=== PATIENT | female | born 1960 | race Caucasian/White ===

== ENCOUNTER 2022-07-17 12:29 | Emergency (ER) | payer OTHER, SELFPAY ==
[2022-07-17 12:53] VITALS: BP 138/90; PULSE 105; RESP 18; TEMP 36.8; O2SAT 97
--- NOTE | 2022-07-17 13:23 | ED.GENADULT ---
HPI - General Adult General Chief complaint: Upper Respiratory Infection Stated complaint: sorethroat Time Seen by Provider: 07/17/22 13:23 Source: patient Mode of arrival: ambulatory Limitations: no limitations History of Present Illness HPI narrative: 52-year-old female patient presents to the [facility] with complaints of sore throat, watery eyes with redness, cough, body aches, chills and fatigue. Denies fevers she is aware of. Patient is an active smoker. Patient states she has not been vaccinated for COVID or influenza. Patient states her symptoms started approximately 3 days ago. Any abdominal pain, nausea vomiting or diarrhea. Denies any chest pain or shortness of breath. Related Data Home Medications Medication Instructions Recorded Confirmed levothyroxine 175 mcg tablet 175 mcg PO DAILY 07/17/22 07/17/22 Allergies Allergy/AdvReac Type Severity Reaction Status Date / Time No Known Allergies Allergy Verified 07/17/22 13:32 Review of Systems Review of Systems: CONSTITUTIONAL: Denies fever, Positive body aches and chills, , denies sweats. positive fatigue EYES: Denies visual changes, positive redness, with clear discharge. ENT: positive rhinorrhea, congestion, sore throat, denies otalgia. CARDIOVASCULAR: Denies chest pain, palpitations, or edema. RESPIRATORY: positive cough denies dyspnea. GASTROINTESTINAL: Denies abdominal pain, nausea, vomiting, or diarrhea. GENITOURINARY: Denies dysuria or hematuria. SKIN: Denies rash or itching. MUSCULOSKELETAL: Denies back pain, joint pain, or myalgia. NEUROLOGIC: Denies headache, numbness, or weakness. PSYCHIATRIC: Denies anxiety or depression. PMFSH Social History Social History (Updated 07/17/22 @ 13:32 by ANATOLIY Penaloza) Smoking status: Current every day smoker Comments At the time of my signature I agree with nursing past medical history, surgical, social, and family history. There is no relevant family history pertinent to the presenting complaint. Exam Narrative: GENERAL: Well-appearing, well-nourished, and in no acute distress. HEAD: Normocephalic, atraumatic. EYES: PERRLA and EOM intact without limitation or complaint of pain, no periorbital soft tissue swelling ,no erythema, warmth or tenderness noted, no obvious deformity. No crusting or swelling.no tearing or draining.No photophobia. No nystagmus No FB or lesion on lid eversion. Corneas grossly clear, no obvious FB or hyphens/hypopyon. erythematous injection to sclera. Lids and lashes clear. clear discharge present. ENT: Nares With erythema and edema noted of bilateral, no rhinorrhea or epistaxis. Mucous membranes moist. posterior pharynx with erythema, no tonsillar enlargement, no exudates or lesions present. Bilateral TMs are clear no erythema foreign bodies in the canal. NECK: Supple. Post auricle lymphadenopathy CHEST: Clear to auscultation. No respiratory distress. Patient able talk clear complete sentences. HEART: Regular rate and rhythm. No murmur heard. Normal peripheral pulses. ABDOMEN: Soft, nontender, nondistended, normal active bowel sounds. EXTREMITIES: Normal range of motion. No edema. SKIN: Warm, dry, no rash. NEURO: No focal deficits. Alert and oriented x3. Course Course Level of Care: Express Care Visit Reevaluation(s) Reevaluation #1: Re-evaluated patient notify her that she has tested negative for everything with clinic today. Discussed with patient she most likely has a virus therefore will discharge her home with an antihistamine eyedrops for the viral conjunctivitis, because she is a smoker we will discharge her home with an albuterol inhaler and steroid as well as Tessalon Perles, and a daily antihistamine and nasal spray for the sinus drainage. Patient verbalized understanding eyes any other questions or concerns at this time. Date: 07/17/22 Time: 14:02 Vital Signs Vital signs: Vital Signs Temperature 36.8 C 07/17/22 12:53 Pulse Rate 105 H 0
== END 2022-07-17 14:05 | disposition home or self-care (01) ==
PROVIDERS: Emergency Provider Nurse Practitioner Family; PCP Family Medicine
DX: J06.9 Acute upper respiratory infection, unspecified (principal); R05.9 Cough, unspecified; J02.9 Acute pharyngitis, unspecified; H10.30 Unspecified acute conjunctivitis, unspecified eye; F17.200 Nicotine dependence, unspecified, uncomplicated; Z20.822 Contact with and (suspected) exposure to COVID-19
CPT/HCPCS: 87081; 87426; 87804; 87880; 99213; C9803; G0463

== ENCOUNTER 2023-12-09 10:19 | Outpatient (CLI) | payer OTHER, SELFPAY ==
[2023-12-09 14:15] LABS: Basophils Absolute Auto 0.1 K/mm3 (0.0-0.1); Eosinophils Absolute Auto 0.1 K/mm3 (0-0.3); Eosinophils Percent Auto 0.7 % (0-4.4); Hematocrit 46.4 % (37.0-47.0); Hemoglobin 15.3 g/dL (12.0-15.0); Immature Granulocyte Absolute 0.03 K/mm3 (0.00-0.031); Immature Granulocyte Percent A 0.3 % (0-0.5); Lymphocytes Absolute Auto 4.05 K/mm3 (0.9-3.2); Lymphocytes Percent Auto 41.2 % (18.3-44.2); Mean Corpuscular Hemoglobin 32.5 pg (26-34); Mean Corpuscular Volume 98.5 fl (80-100); Mean Platelet Volume 11.1 fl (7.4-10.4); Monocytes Absolute Auto 0.9 K/mm3 (0.1-0.6); Neutrophils Absolute Auto 4.7 K/mm3 (1.3-6.7); Neutrophils Percent Auto 47.8 % (45.5-73.1); Platelet Count Result 260 k/mm3 (150-375); Red Blood Count 4.71 M/mm3 (4.2-5.4); Red Cell Distribution Width 13.9 % (11.5-14.5); White Blood Count 9.8 K/mm3 (4.5-10.0)
[2023-12-09 15:48] LABS: LDL Cholesterol Direct 106 mg/dL
[2023-12-09 15:56] LABS: Alanine Aminotransferase 25 U/L (6-35); Albumin Level 4.1 g/dL (3.5-5.1); Alkaline Phosphatase 140 U/L (38-126); Anion Gap 1 mmol/L (4-12); Aspartate Amino Transferase 59 U/L (14-36); Bilirubin,Total 0.5 mg/dL (0.2-1.3); Blood Urea Nitrogen 5 mg/dL (7-17); Calcium 8.9 mg/dL (8.4-10.2); Carbon Dioxide 32 mmol/L (22-30); Chloride 104 mmol/L (98-107); Cholesterol 170 mg/dL (0-200); Estimated Glomerular Filt Rate > 60; Glucose 102 mg/dL (65-110); HDL Direct 39 mg/dL; Sodium 137 mmol/L (137-145); Triglycerides 150 mg/dL (<150)
[2023-12-09 16:33] LABS: Hemoglobin A1C 5.4 % (<5.7)
[2023-12-09 16:53] LABS: Free T4 Free Thyroxine 0.48 ng/mL (0.78-2.19); Vitamin D 25 Hydroxy 19.1 ng/mL
[2023-12-09 17:41] LABS: Total Triiodothyronine (T3) 1.07 NG/ML (0.97-1.69)
== END 2023-12-09 10:20 | disposition home or self-care (01) ==
LOC: ANHGOSHLAB 10:20
PROVIDERS: PCP Emergency Medicine; Visit Provider Emergency Medicine
DX: E03.9 Hypothyroidism, unspecified (principal); R53.83 Other fatigue; E66.9 Obesity, unspecified
CPT/HCPCS: 36415; 80053; 80061; 82306; 82607; 83036; 84439; 84443; 84480; 85025

== ENCOUNTER 2023-12-09 10:44 | Outpatient (CLI) | payer OTHER, SELFPAY ==
--- NOTE | ~2023-12-09 | XR_ITS ---
XR chest 2V 12/09/2023 10:54 Indication: Lower respiratory infection Procedure: PA and lateral views of the chest Comparison: No prior studies for comparison. Findings: There is a left upper lobe mass near the apex, concerning for bronchogenic carcinoma. Heart size normal. Right lung clear. No focal pneumonia, pleural effusion or pneumothorax. Impression: 1: Left upper lobe mass, suspicious for bronchogenic carcinoma. Reviewed, dictated and finalized at location B. Impression: 1: Left upper lobe mass, suspicious for bronchogenic carcinoma.
== END 2023-12-09 10:45 ==
PROVIDERS: PCP Emergency Medicine; Visit Provider Emergency Medicine
DX: R91.8 Other nonspecific abnormal finding of lung field (principal); J22 Unspecified acute lower respiratory infection
CPT/HCPCS: 71046

== ENCOUNTER 2023-12-19 15:30 | Outpatient (CLI) | payer OTHER, SELFPAY ==
--- NOTE | ~2023-12-19 | CT_ITS ---
EXAMINATION: CT diagnostic chest w con DATE: 12/19/2023 16:31 INDICATION: R91.8 - Other nonspecific abnormal finding of lung field TECHNIQUE: Computed tomography (CT) of the chest was performed with 100 mL Omnipaque-350 intravenous contrast. Additional 3D reconstructions utilizing coronal maximum intensity projection (MIP) were per formed. Automated exposure control and iterative reconstruction technique were employed. The dose-guerda gth product was 350.80 mGy-cm. COMPARISON: None FINDINGS: 3.5 x 3.5 x 3.0 cm lobular mass at the posterior medial left apex which is concerning for primary bro nchogenic carcinoma. The mass extends towards the left hilum where there are several enlarged left hi lar lymph nodes. There is also a mildly enlarged mediastinal lymph node at the AP window. These are c oncerning for metastatic disease. Mild discoid atelectasis/scarring at the basilar aspect of the bila teral lower lobes. Calcified nodule at the superior segment of the left lower lobe consistent with ol d granulomatous disease. No other suspicious pulmonary nodules, pneumonia, pulmonary edema or pleural effusion. Heart size is normal. Small to moderate-sized pericardial effusion. Cholecystectomy clips at the gallbladder fossa. Moderate thoracic and lower cervical spondylosis IMPRESSION: 1. 3.5 similar right upper lobe mass with enlarged right hilar and mediastinal lymph nodes suspicious for primary bronchogenic carcinoma and associated metastatic disease. Recommend biopsy of the right apical mass. Reviewed, dictated and finalized at location A. IMPRESSION: 1. 3.5 similar right upper lobe mass with enlarged right hilar and mediastinal lymph nodes suspicious for primary bronchogenic carcinoma and associated metast atic disease. Recommend biopsy of the right apical mass.
== END 2023-12-19 15:31 | disposition home or self-care (01) ==
LOC: ANHIMG 15:30
PROVIDERS: PCP Emergency Medicine; Visit Provider Emergency Medicine
DX: R91.8 Other nonspecific abnormal finding of lung field (principal)
CPT/HCPCS: 71260; Q9967